=== PATIENT | male | born 1940 | race Caucasian/White ===

== ENCOUNTER → 2017-07-16 | Outpatient (CLI) | payer OTHER ==
[~2017-07-16] MED LIST: REGADENOSON 0.4 MG/5 ML DISP.SYRIN. IV
== END | disposition home or self-care (01) ==
LOC: PCVCIMAG 11:20
DX: Z01.818 Encounter for other preprocedural examination (principal); I47.1 Supraventricular tachycardia; I10 Essential (primary) hypertension; J44.9 Chronic obstructive pulmonary disease, unspecified; I27.20 Pulmonary hypertension, unspecified; E78.00 Pure hypercholesterolemia, unspecified; J90 Pleural effusion, not elsewhere classified; I82.409 Acute embolism and thrombosis of unspecified deep veins of unspecified lower extremity; I26.09 Other pulmonary embolism with acute cor pulmonale; Z87.891 Personal history of nicotine dependence; Z79.899 Other long term (current) drug therapy; Z79.82 Long term (current) use of aspirin
CPT/HCPCS: 78452; 80061; 93005; 93017; A9500; G0463; J2785